=== PATIENT | female | born 1995 | race Caucasian/White ===

== ENCOUNTER 2019-07-29 07:00 | Emergency (ER) | payer MEDICAID ==
[~2019-07-29] VITALS: Ht 165.1 cm; Wt 63.5 kg
[2019-07-29 07:13] VITALS: BP 118/77; Ht 165.1 cm; Wt 63.5 kg
== END 2019-07-29 07:48 | disposition home or self-care (01) ==
LOC: ED 07:00
DX: J45.901 Unspecified asthma with (acute) exacerbation (principal); F17.210 Nicotine dependence, cigarettes, uncomplicated; Z71.6 Tobacco abuse counseling
CPT/HCPCS: 99406